=== PATIENT | male | born 1970 | race Caucasian/White ===

== ENCOUNTER 2019-06-20 06:56 | Day surgery (SDC) | payer OTHER, SELFPAY ==
[2019-06-19 12:58] VITALS: BMI 33.9
[2019-06-20 07:10] VITALS: BP 131/79; PULSE 75; RESP 18; TEMP 36.1; O2SAT 93
[2019-06-20 07:15] LABS: Glucose Point of Care 151 mg/dL (70-110)
--- NOTE | 2019-06-20 07:51 | P.ANESASSM_ITS ---
Pre-Anesthetic Assessment Pre-Anesthetic Assessment: Height/Weight: Height 1.83 m Weight 113.398 kg Preop Diagnosis: Mass R Thumb Proposed Procedure: Operation Date: 06/20/19 08:15 Proposed Procedures p Excision Of Cyst finger right hand 46775(Right) - Cachorro Stubbs MD Last intake: Intake Last Liquid Date 06/19/19 Last Liquid Time 23:00 Last Solid Date 06/19/19 Last Solid Time 18:30 Social: Packs per day: 1 Pack years: 25 Comment: quit 10y Exam: Pre-Anes Outpt Exam: alert, oriented x 3, clear to auscultation bilaterally and regular rate & rhythm Airway: Submandibular: WNL Cervical ROM: Other MP: 2 CV/HEM: CV/HEM: HTN Comments: 15y stress test '19 negative 2 blocks/2FOS without angina/KAMARA 3 miles over 48 minutes Metabolic: Metabolic: DM Comments: rx'd x 3y Musc/skel: Musc/skel: Lower Back Pain Comments: intermittent left radiculopathy Neuropsych: Neuropsych: Depression Anesthetic Plan: ASA status: 3 Anesthesia: MAC Data Anesthesia Other Labs: Laboratory Results - last 48 hr 06/20/19 07:13 POC Glucose 151 Cardiac Studies: 2 No Data to Display
--- NOTE | 2019-06-20 08:39 | W.PM.OPSUD ---
Surgery/Procedure H&P Update DATE OF PROCEDURE: June 20, 2019 DATE H&P PERFORMED: 06/12/19 H&P UPDATE INFORMATION: I have reviewed H&P completed within last 30 days PREOP DIAGNOSIS: Mass R Thumb PRIMARY INDICATION FOR PROCEDURE: Painful mass Right thumb PLANNED PROCEDURE: Operation Date: 06/20/19 08:15 Proposed Procedures p Excision Of Cyst finger right hand [id number](Right) - Cachorro Stubbs MD
[2019-06-20] MEDS: sodium chloride 0.9% 1,000 ML 30 ML IV (08:55)
[2019-06-20] MEDS: lidocaine 1% INJ 20 mL 12 ML SUBCUT (09:20)
--- NOTE | 2019-06-20 09:26 | PM.OP ---
Operative Report Date of procedure: June 20, 2019 Pre-op Diagnosis: Mass R Thumb Post-op diagnosis: same Post-op Findings: The patient has a 5 mm diameter firm nodular mass on the volar thumb Procedure Done: Excision deep mass right thumb Specimens removed/disposition: 5 mm diameter mass sent to pathology Pathology: 5 mm diameter mass sent to pathology Surgeon: Cachorro Stubbs Anesthesia: MAC Estimated blood loss (mL): 2 Tourniquet time (min): 9 Findings: The patient had a firm nodular 5 mm mass in the subcu deep palmar tissue of the right thumb overlying the periosteum Condition: stable Disposition: same day Procedure: The patient was taken to the operating room and given sedation by anesthesia. He was prepped and draped in the supine position with his right thumb exposed. A timeout was performed approximately 8 cc of 1% lidocaine were infiltrated circumferentially around the base of the thumb. A digital tourniquet was applied. A 7 mm transverse incision was made across the volar thumb and line with skin creases. Dissection was carried down through the skin and fascia to the palpable mass which was dissected out circumferentially with a hemostat. The skin was closed with interrupted 3-0 Prolene. The tourniquet was removed. Xeroflo gauze 4 x 4's and Coban dressings were applied.
[2019-06-20 09:41] VITALS: BP 136/82; PULSE 72; RESP 18; TEMP 36.2; O2SAT 95
[2019-06-20 09:48] VITALS: BP 139/80; PULSE 71; RESP 18; O2SAT 97
== END 2019-06-20 10:07 | disposition home or self-care (01) ==
PROVIDERS: Family Provider Family Medicine; PCP Family Medicine; Visit Provider Orthopaedic Surgery
PROC: (CPT 11420; principal; 2019-06-20 08:15)
DX: L72.0 Epidermal cyst (principal); Z87.891 Personal history of nicotine dependence; I10 Essential (primary) hypertension; Z79.84 Long term (current) use of oral hypoglycemic drugs
CPT/HCPCS: 11420; 12345; 36416; 82962; 88304; J2001; J2250; J3010; J7030

== ENCOUNTER 2020-06-03 14:55 | Outpatient (CLI) | payer OTHER, SELFPAY ==
--- NOTE | 2020-06-03 15:02 | XR_ITS ---
WS: [id number] LATERAL CERVICAL SPINE: 3 view. Lateral radiographs are performed in upright neutral, flexion and extension to the patient's toleranc e. HISTORY: CERVICALGIA COMPARISON: None available. Straightening of the normal cervical lordosis. Mild disc space narrowing at C3-4 and C4-5 with endpla te osteophytes. With flexion and extension no instability is demonstrated. No fractures. XR/XR cervical spine fl/ex [id number] IMPRESSION: Mild cervical spondylosis with no instability.
== END 2020-06-03 14:56 | disposition home or self-care (01) ==
LOC: RADWPI 14:58
PROVIDERS: PCP Family Medicine; Visit Provider Nurse Practitioner
DX: M54.2 Cervicalgia (principal); M47.812 Spondylosis without myelopathy or radiculopathy, cervical region
CPT/HCPCS: 72040